=== PATIENT | male | born 1995 | race Caucasian/White ===

== ENCOUNTER → 2019-08-29 10:44 | Outpatient (BNVA) | payer OTHER, SELFPAY | PROVIDERS: Family Provider Nurse Practitioner; Visit Provider Counselor Professional | DX: F33.1 Major depressive disorder, recurrent, moderate (principal) | CPT/HCPCS: 90791 ==

== ENCOUNTER → 2019-09-26 09:00 | Outpatient (BNVA) | payer OTHER, SELFPAY | PROVIDERS: Family Provider Nurse Practitioner; Visit Provider Counselor Professional | DX: F33.1 Major depressive disorder, recurrent, moderate (principal); Z65.3 Problems related to other legal circumstances | CPT/HCPCS: 90834 ==

== ENCOUNTER → 2019-10-31 08:06 | Outpatient (BNVA) | payer OTHER, SELFPAY | PROVIDERS: Family Provider Nurse Practitioner; Visit Provider Counselor Professional | DX: F33.1 Major depressive disorder, recurrent, moderate (principal); Z65.3 Problems related to other legal circumstances | CPT/HCPCS: 90832 ==

== ENCOUNTER → 2019-12-24 11:04 | Outpatient (BNVA) | payer BC, SELFPAY | PROVIDERS: Family Provider Nurse Practitioner; Visit Provider Counselor Professional | DX: F33.1 Major depressive disorder, recurrent, moderate (principal); Z65.3 Problems related to other legal circumstances | CPT/HCPCS: 90832 ==

== ENCOUNTER → 2020-01-02 14:38 | Outpatient (BNVA) | payer BC, SELFPAY | PROVIDERS: Family Provider Nurse Practitioner; Visit Provider Psychiatry & Neurology Psychiatry | DX: F33.1 Major depressive disorder, recurrent, moderate (principal); F41.1 Generalized anxiety disorder; F43.9 Reaction to severe stress, unspecified; F17.200 Nicotine dependence, unspecified, uncomplicated | CPT/HCPCS: 99204 ==

== ENCOUNTER → 2020-02-04 07:47 | Outpatient (BNVA) | payer BC, SELFPAY | PROVIDERS: Family Provider Nurse Practitioner; Visit Provider Psychiatry & Neurology Psychiatry | DX: F43.9 Reaction to severe stress, unspecified (principal); F41.1 Generalized anxiety disorder; F33.1 Major depressive disorder, recurrent, moderate; F17.200 Nicotine dependence, unspecified, uncomplicated | CPT/HCPCS: 99213 ==

== ENCOUNTER → 2020-03-31 07:58 | Outpatient (BNVA) | payer BC, SELFPAY | PROVIDERS: Family Provider Nurse Practitioner; Visit Provider Psychiatry & Neurology Psychiatry | DX: F33.1 Major depressive disorder, recurrent, moderate (principal); F41.1 Generalized anxiety disorder; F43.9 Reaction to severe stress, unspecified; F17.200 Nicotine dependence, unspecified, uncomplicated | CPT/HCPCS: 99213 ==

== ENCOUNTER → 2020-06-23 08:03 | Outpatient (BNVA) | payer BC, SELFPAY | PROVIDERS: Family Provider Nurse Practitioner; Visit Provider Psychiatry & Neurology Psychiatry | DX: F43.9 Reaction to severe stress, unspecified (principal); F41.1 Generalized anxiety disorder; F33.1 Major depressive disorder, recurrent, moderate; F17.200 Nicotine dependence, unspecified, uncomplicated | CPT/HCPCS: 99213 ==

== ENCOUNTER → 2020-08-04 08:44 | Outpatient (BNVA) | payer BC, SELFPAY | PROVIDERS: Family Provider Nurse Practitioner; Visit Provider Psychiatry & Neurology Psychiatry | DX: F41.1 Generalized anxiety disorder (principal); F33.1 Major depressive disorder, recurrent, moderate; F17.200 Nicotine dependence, unspecified, uncomplicated; F43.9 Reaction to severe stress, unspecified | CPT/HCPCS: 99214 ==

== ENCOUNTER → 2020-09-29 08:00 | Outpatient (BNVA) | payer BC, SELFPAY | PROVIDERS: Family Provider Nurse Practitioner; Visit Provider Psychiatry & Neurology Psychiatry | DX: F43.9 Reaction to severe stress, unspecified (principal); F41.1 Generalized anxiety disorder; F33.1 Major depressive disorder, recurrent, moderate; F17.200 Nicotine dependence, unspecified, uncomplicated | CPT/HCPCS: 99213 ==

== ENCOUNTER 2021-06-18 18:51 | Emergency (ER) | payer BC, SELFPAY ==
[2021-06-18 19:01] VITALS: BP 140/77; PULSE 101; RESP 19; TEMP 37.6; O2SAT 97; BMI 38.1
--- NOTE | 2021-06-18 19:18 | XRR_ITS ---
PROCEDURE INFORMATION: Exam: XR Chest Exam date and time: 06/18/2021 7:18 PM Age: 26 years old Clinical indication: Cough and shortness of breath; Additional info: Cough and fever TECHNIQUE: Imaging protocol: XR of the chest. Views: 1 view. COMPARISON: No relevant prior studies available. FINDINGS: Lungs: Left hilar to lower lobe atelectasis versus minimal infiltrate. Pleural spaces: Unremarkable. No pleural effusion. No pneumothorax. Heart/Mediastinum: Unremarkable. No cardiomegaly. Bones/joints: Unremarkable. XR/XR chest 1V portable [id number] IMPRESSION: Left hilar to lower lobe atelectasis versus minimal infiltrate.
--- NOTE | 2021-06-18 20:13 | W.ED.COVID ---
HPI - COVID General: Chief Complaint: COVID symptoms Stated Complaint: SOB and chest pains Time Seen by Provider: 06/18/21 19:19 Triage information: Has fever, cough or shortness of breath. No known COVID + exposure last 14 days History of Present Illness: HPI Narrative: Patient is a 26-year-old male who comes to the ED with upper respiratory symptoms. Patient was recently seen with a televisit by his PCP and started on Augmentin yesterday for sinus infection and sore throat. symptoms started approximately 3 weeks ago. He did state one person tested positive for Covid at his work recently. He is also complaining of having a cough, nasal congestion and drainage, fever, generalized body aches and some mild shortness of breath. Denies any abdominal pain, nausea/vomiting, bladder or bowel symptoms. Patient endorses having a nosebleed today and one started again while he was here in the ED. COVID 19 common symptoms: positive fever(s), non-productive cough, dyspnea, fatigue, body aches, throat pain and nasal congestion; negative chills, productive cough, headache(s), nausea, vomiting or diarrhea COVID 19 other sytmptoms: negative chest pain COVID Results: SARS-CoV-2 Antigen (Rapid) Positive (Negative) H 06/18/21 19:50 06/18/21 SARS-CoV-2 RNA (RT-PCR) Pending 06/18/21 19:50 06/18/21 Review of Systems Const: Reports: fever(s), body aches and fatigue; Denies: chills Eyes: Denies: change in vision or eye discomfort ENMT: Reports: throat pain, nasal discharge, nasal congestion, epistaxis and sinus pain; Denies: odynophagia or ear or mastoid pain Card: Denies: chest pain, palpitations, edema, swelling of feet/ankles, dyspnea on exertion or orthopnea Resp: Reports: dyspnea and non-productive cough; Denies: productive cough GI: Denies: abdominal pain, nausea, vomiting, diarrhea, constipation or hematochezia : Denies: flank pain, difficulty urinating, dysuria or hematuria Musc: Denies: neck pain, back pain or extremity swelling Skin/Breast: Denies: rash or new lesions Neuro: Denies: headache(s), numbness in extremities or weakness in extremities PFSH ED PFSH: Social History Smoking and tobacco status: current every day smoker e-cigarettes E-Cigarette Details: with nicotine E-cig/vape details: 2 days/Cartridge Quit status (tobacco): has tried quititng Number of times tried to quit tobacco: 5 Second hand smoke exposure: Yes Smoking risk assessment/counseling performed?: No Current gender identity: Male Physical Exam Const: COMMON NORMALS: no acute distress, patient oriented x3, healthy appearing and alert GENERAL APPEARANCE: cooperative and comfortable HENMT: COMMON NORMALS: normocephalic HEAD & SCALP: normocephalic NOSE: Epistaxis present on the right dried blood present MOUTH: Normal oral and palatal mucosa present THROAT: posterior oropharynx normal and uvula midline Eye: COMMON NORMALS: Equal, round and reactive pupils present PUPIL: Yes Equal, round and reactive pupils present Neck/C-Spine: COMMON NORMALS: supple GENERAL: Yes normal visual inspection Resp: COMMON NORMALS: normal respiratory effort, No retractions, No use of accessory muscles and clear to auscultation bilaterally AUSCULTATION: clear to auscultation bilaterally Cardio: COMMON NORMALS: regular rate, regular rhythm, S1 normal heart sound present, S2 normal heart sound present, No gallops present (Cardio), No clicks present (Cardio), No murmurs present (Cardio) and Peripheral pulses 2+ throughout RATE: regular rate RHYTHM: regular rhythm HEART SOUNDS: S1 normal heart sound present and S2 normal heart sound present PERIPHERAL PULSES: Peripheral pulses 2+ throughout GI: COMMON NORMALS: Normal to inspection, nondistended, normoactive bowel sounds present, Soft to palpation, non-tender and no masses PALPATION: Yes Soft to palpation : COMMON NORMALS: Yes no CVA tenderness BLADDER/KIDNEY EXAM: Yes no CVA tenderness Back/Pelvis: COMMON NORMALS: no CVA tenderness Extremity: COMMON NORMALS: normal to inspection Neuro: COMMON NORMALS: patient oriented x3 and moves all extremities SENSORIUM/ORIENTATION: Yes alert Skin: GENERAL SKIN EXAM: dry skin Course Vital Signs: Vital signs: Vital Signs Temperature 99.6 F 06/18/21 19:01 Pulse Rate 101 H 06/18/21 19:01 Respiratory Rate 19 H 06/18/21 19:01 Blood Pressure 140/77 06/18/21 19:01 Pulse Oximetry 97 06/18/21 21:04 MDM - COVID MDM Narrative: Medical decision making narrative: Patient is a 26-year-old male comes to the ED with upper respiratory symptoms for the past 3 weeks. He was just put on Augmentin by his PCP yesterday. He is also currently having a nosebleed here in the ED. He was recently exposed to somebody who had COVID-19 at work. Vitals are stable with O2 saturation 97% on room air. Patient's nosebleed appears to have stopped and visible dried blood is seen in right nare. He was given some Afrin and nasal clamp as well while here in the ED to help control nosebleed. Chest x-ray showed some possible left lower lobe with minimal infiltrates. Influenza negative. Rapid Covid positive. Patient diagnosed with COVID-19 and epistaxis. He was given a dose of IM Decadron while here in the ED. He was discharged home with a prescription for Decadron and told to continue taking his Augmentin as prescribed. He was also sent home with a nasal clamp and instructed on how to control any reoccurring nosebleeds. Return to ED precautions given. Follow-up with PCP in 7 to 10 days for reevaluation. Patient understood and agreed with plan. Lab Data: Attestation: I reviewed the patient's lab results. Labs: Lab Results 06/18/21 06/18/21 19:50 19:50 Influenza Type A A g Negative (Negative) Influenza Type B A g Negative (Negative) SARS-CoV-2 Ag (Rap id) Positive H (Negative) Imaging Data: CXR: Attestation: I personally reviewed and interpreted this imaging study as follows: Radiologist's impression: [address] [address] XRay Report Signed Patient: Doug Mera Unit #: [id number] : [id number] Age/Sex: 26 / M ADM Date: 06/18/21 Loc: ER Room/Bed: Attending Dr: Ordering Provider/Ordering MD: Javier Baxter Date of Service: 06/18/21 Procedure(s): XR chest 1V portable [id number] Accession Number(s): [id number] Report Number: [id number] PROCEDURE INFORMATION: Exam: XR Chest Exam date and time: 06/18/2021 7:18 PM Age: 26 years old Clinical indication: Cough and shortness of breath; Additional info: Cough and fever TECHNIQUE: Imaging protocol: XR of the chest. Views: 1 view. COMPARISON: No relevant prior studies available. FINDINGS: Lungs: Left hilar to lower lobe atelectasis versus minimal infiltrate. Pleural spaces: Unremarkable. No pleural effusion. No pneumothorax. Heart/Mediastinum: Unremarkable. No cardiomegaly. Bones/joints: Unremarkable. XR/XR chest 1V portable [id number] IMPRESSION: Left hilar to lower lobe atelectasis versus minimal infiltrate. Dictated By: Joey Bonilla MD Signed By: Joey Bonilla MD Signed Date/Time: 06/18/211956 DD/ 17 COVID Results: SARS-CoV-2 Antigen (Rapid) Positive (Negative) H 06/18/21 19:50 06/18/21 SARS-CoV-2 RNA (RT-PCR) Pending 06/18/21 19:50 06/18/21 Discharge Plan Discharge Patient Disposition: Home Clinical Impression: COVID-19, Epistaxis Condition: Stable Prescriptions: New Decadron 6 mg tablet 6 mg PO DAILY 7 Days Qty: 7 RF: 0 No Action Chantix Starting Month Box 0.5 mg (11)- 1 mg (42) tablets,dose pack See Rx Instructions PO PER PKG DIR Qty: 53 RF: 0 nicotine 21 mg/24 hr patch 24 hour 1 patch transdermal Q24H Qty: 28 RF: 2 nicotine (polacrilex) [Nicorette] 4 mg gum 4 mg buccal Q1H Qty: 110 RF: 2 bupropion HCl [Wellbutrin XL] 150 mg tablet extended release 24 hr 150 mg PO QAM Qty: 30 RF: 2 bupropion HCl [Wellbutrin XL] 300 mg tablet extended release 24 hr 300 mg PO QAM Qty: 30 RF: 2 Discharge Orders: Discharge ED (Routine); Ordered 06/18/21 Ordered By: Javier Baxter Discharge Diet: Regular Discharge Activity: Limit activity as instructed Patient Instructions: Viral Syndrome (ED) Activity Restrictions/Additional Instructions: Follow-up with medical provider as directed in the next 7-10 days for reevalutation. Take medications as prescribed. Continue taking your previously prescribed Augmentin. return to the ER or your medical provider if condition worsens. Please read and understand discharge instructions. Thank you for choosing [facility] for your healthcare needs today. Please realize this is an emergency room and that we are providing you with a medical screening exam and this may not be complete and all inclusive of all the testing and or work up that you may need to determine your ailment or severity of your illness. It is very important that you follow up as instructed or that you return to the Emergency Department should you have concerns or if your condition changes or worsens in any way. Coding Level of Care Code ED Activity Coordinator for Maurice Nolan Exam Comprehensive
[2021-06-18 20:18] LABS: Influenza A by IFA Negative (Negative); Influenza B by IFA Negative (Negative); SARS Covid-2 Antigen Positive (Negative)
[2021-06-18] MEDS: dexamethasone 10 mg/mL INJ IM (21:00)
[2021-06-18] MEDS: oxymetazoline 0.05% Nasal Spray 15 mL 2 SPRAY NOSTRIL-B (21:00)
[2021-06-18 21:04] VITALS: O2SAT 97
[2021-06-21 00:02] LABS: Quest SARS-CoV-2 RNA DETECTED (NOT DETECTED)
--- NOTE | 2021-06-21 09:25 | PC.NURSE ---
Left voicemail to return call to ER for lab results
== END 2021-06-18 21:04 | disposition home or self-care (01) ==
PROVIDERS: Emergency Provider Physician Assistant
DX: U07.1 COVID-19 (principal); R04.0 Epistaxis; F17.290 Nicotine dependence, other tobacco product, uncomplicated
CPT/HCPCS: 71045; 87426; 87635; 87804; 96372; 99283; J1100